=== PATIENT | female | born 1970 | race Caucasian/White ===

== ENCOUNTER → 2017-10-21 | Outpatient (CLI) | payer BC ==
[2017-10-21 19:05] LABS: T4, Free (Free Thyroxine) 0.82 ng/dL (0.78-2.19)
[2017-10-21 22:34] LABS: HCT 43.2 % (34.0-46.0); HGB 15.1 gm/dL (11.4-16.0); MCH 31.6 pg (25.0-35.0); MCV 90.5 fL (80.0-100.0); Mean Platelet Volume 7.3; Platelet Count 386 k/uL (150-450); RBC 4.78 m/uL (3.80-5.40); RDW 11.8 % (11.5-15.5); WBC 6.4 k/uL (3.8-10.6)
[2017-10-22 00:42] LABS: Thyroid Peroxidase Antibodies <28.0 U/mL (0.0-60.0)
== END | disposition home or self-care (01) ==
LOC: MMGSC 14:07
PROVIDERS: ATTEND Obstetrics & Gynecology
DX: E03.9 Hypothyroidism, unspecified (principal); R53.83 Other fatigue; Z78.0 Asymptomatic menopausal state
CPT/HCPCS: 36415; 82306; 82607; 82670; 83001; 84403; 84439; 84443; 85027; 86376